=== PATIENT | female | born 1980 | race African-American/Black ===

== ENCOUNTER → 2023-03-28 14:13 | Outpatient (BNVA) | payer OTHER, SELFPAY | PROVIDERS: PCP Internal Medicine; Visit Provider Physician Assistant | DX: Z48.89 Encounter for other specified surgical aftercare (principal); Z98.1 Arthrodesis status | CPT/HCPCS: 99212 ==

== ENCOUNTER 2023-06-27 09:24 | Outpatient (REF) | payer OTHER, SELFPAY | END 2023-06-27 09:25 | disposition home or self-care (01) | LOC: HO.HOSX 09:24 | PROVIDERS: Visit Provider Physician Assistant | DX: Z13.89 Encounter for screening for other disorder (principal) ==

== ENCOUNTER 2023-07-15 14:35 | Outpatient (AMB) | payer OTHER, SELFPAY ==
--- NOTE | 2023-07-15 14:47 | HO.SPINEOV ---
Intake Intake Visit Reasons: 2nd post op Intake Note: Ms. Ruggiero is here today for her 2nd post-op visit. Automation Machine Operator Required: No Assessment & Plan Assessment & Plan (1) Cervical radiculopathy: Code(s): M54.12 - Radiculopathy, cervical region Plan Mrs Ruggiero is now about 4 and half months out from her anterior cervical fusion C5-6. Unfortunately she has not seen a significant relief of the pain going down her right arm into her hand. She is now also starting to get pain going down her left arm. We were concerned about the amount of advanced degeneration we saw at the C3-4 level at the time of her initial office visit but wanted to avoid committing her to a 3 level cervical fusion. Unfortunately due to lack of improvement and persistence of symptoms she is back today to discuss if there any further options. She is still continuing to gets some tingling in her hands as well. She also has neck pain in the posterior interscapular region. Holding her arms overhead is quite difficult as well as a will give her a significant amount of discomfort. Exam is nonfocal. I would like to get a set of x-rays to evaluate the hardware, followed by cervical MRI with and without emily 0 to assess if there is any residual stenosis at C5-6 and whether not we may consider any future surgeries. Total amount of time spent in this visit was 20 minutes in discussion of symptoms, x-ray an MRI ordering and subsequent plan of care Heriberto Og MD,PhD [facility] Orders: Orders MR cervical spine wo/w con Today M54.12 - Radiculopathy, cervical region XR cervical spine 4V Today M54.12 - Radiculopathy, cervical region Coding Level of Care Code Est Pt Level 3 (53217) Diagnoses Cervical radiculopathy M54.12
== END 2023-07-15 15:11 | disposition home or self-care (01) ==
PROVIDERS: PCP Internal Medicine; Visit Provider Physician Assistant
DX: M54.12 Radiculopathy, cervical region (principal)
CPT/HCPCS: 99213

== ENCOUNTER 2023-07-15 14:35 | Outpatient (REF) | payer OTHER, SELFPAY ==
--- NOTE | ~2023-07-15 | XR_ITS ---
EXAMINATION: XR CERVICAL SPINE CLINICAL INFORMATION: Radiculopathy COMPARISON: None available. TECHNIQUE: 4 views of the cervical spine were obtained. FINDINGS: There is evidence of mild anterolisthesis of C2 on C3 with flexion positioning and minimal retrolisthesis of C2 on C3 with extension positioning. Alignment is otherwise unremarkable. Cervical vertebral body heights are maintained. There is anterior fusion hardware at the C5/6 level. Cervical vertebral body heights are maintained. Disc spaces are relatively well-maintained. Osteophytes are noted within the mid and lower cervical spine. There is no prevertebral soft tissue swelling. Visualized lung apices are well aerated. XR/XR cervical spine 4V IMPRESSION: 1. Evidence of mild anterolisthesis of C2 on C3 with flexion positioning and minimal retrolisthesis of C2 on C3 with extension positioning. 2. Postsurgical changes of the cervical spine.
== END 2023-07-15 14:36 | disposition home or self-care (01) ==
LOC: HO.HOSX 14:35
PROVIDERS: PCP Internal Medicine; Visit Provider Physician Assistant
DX: M54.12 Radiculopathy, cervical region (principal)
CPT/HCPCS: 72050; 99212

== ENCOUNTER 2023-08-12 15:54 | Outpatient (REF) | payer OTHER, SELFPAY ==
--- NOTE | ~2023-08-12 | MR_ITS ---
EXAMINATION: MR CERVICAL SPINE WITHOUT AND WITH CONTRAST CLINICAL INFORMATION: 43-year-old with radiculopathy, cervical region. History of previous cervical fusion. COMPARISON: None available. TECHNIQUE: MRI of the cervical spine was obtained using routine sequences with and without contrast. Intravenous contrast: Gadavist 10 mL. TECHNICAL NOTE: Images are degraded by motion artifact and suboptimal signal. FINDINGS: ALIGNMENT: Slight lordotic reversal centered at C3-C4. Otherwise alignment appears anatomic. CRANIOCERVICAL JUNCTION/C1-C2 ARTICULATIONS: Intact and aligned. VISUALIZED INTRACRANIAL STRUCTURES: Grossly unremarkable. VERTEBRAL BODIES: Vertebral body heights are well-maintained. Note that there is ferromagnetic artifact anteriorly at C5-C6 consistent with previous ACDF procedure which partially obscures the vertebral bodies and disc space at this level. DISC SPACES AND ENDPLATES: Postoperative changes at C5-C6 with partial obscuration due to metallic artifact. Moderate disc space height loss at C3-C4 with anterior marginal disc osteophyte complex and disc desiccation. Mild disc space height loss at C4-C5 with disc desiccation and anterior marginal disc osteophyte complex. Mild disc volume loss at C6-C7 with disc desiccation and anterior marginal spondylosis. Disc desiccation at C2-C3. BONE MARROW: Limited assessment due to ferromagnetic artifact at C5-C6. Possible degenerative endplate changes versus postoperative changes along the endplates at C5-C6 versus artifact. Minor type II marrow signal changes along the inferior endplate of C3 and along the inferior endplate of C6. Minimal type I marrow signal changes suspected at C6-C7. C2-C3: Shallow central disc protrusion with mild indentation of the ventral thecal sac without cord impingement. Ligamentum flavum thickening is noted with mild central canal stenosis. No significant DJD or neural foraminal stenosis. C3-C4: Broad-based central to right paramedian/subarticular extruded disc herniation with cephalad and caudal migration associated with endplate spurring, with effacement of the ventral dural sac on the right and moderate right-sided ventral cord compression without cord edema. There is xnxcxvjo-bv-rgtach spinal canal stenosis asymmetric to the right with right lateral recess stenosis. Disc herniation also encroaches on the proximal right neural foramen likely impinging on the right C4 nerve root with zrvmmlbq-nv-uwcswn narrowing of the right neural foramen. There is uncinate process spurring also noted without significant left-sided foraminal narrowing. C4-C5: Central to left paramedian disc herniation noted, with encroachment on the ventral dural sac centrally and slightly asymmetric to the left without kimberly cord compression. There is qwau-sp-cducynms spinal canal stenosis slightly asymmetric to the left. Minor left-sided and moderate right-sided facet arthropathy noted with minor uncinate process spurring without significant neural foraminal stenosis. C5-C6: Status post ACDF at this level, with posterior osteophytic ridging asymmetric to the right with flattening of the ventral dural sac, right more than left and moderate ventral cord deformity asymmetric to the right associated with moderate spinal canal stenosis asymmetric to the right. Bony productive change noted laterally with mild foraminal narrowing. C6-C7: Central to left paramedian disc herniation noted, with flattening of the ventral dural sac asymmetric to the left with mild left-sided ventral cord deformity/impingement and yhlc-cy-hsscoljl spinal canal stenosis. There is mild facet arthropathy on the left with uncinate process spurring without significant neural foraminal stenosis. C7-T1: Small central disc protrusion with slight indentation of the ventral thecal sac without cord impingement or canal stenosis. Mild facet arthrosis on the left with minor left-sided foraminal narrowing. SPINAL CORD: The cervical and visualized upper thoracic spinal cord demonstrates normal signal intensity throughout within the limitations of the study, without focal lesion, edema, syrinx or abnormal enhancement. There is no definite abnormal leptomeningeal enhancement within the limitations of the exam. EXTRACRANIAL SOFT TISSUES: Note is made of a mildly enlarged left-sided level III-B lymph node. No other enlarged lymph nodes are seen. This is a nonspecific finding. There is suboptimal evaluation of vascular signal voids on this exam. Within these limitations, signal voids are noted in the major arterial structures. MR/MR cervical spine wo/w con IMPRESSION: 1. Status post ACDF procedure at the C5-C6 level, with osteophytic ridging asymmetric to the right and moderate spinal canal stenosis with ventral cord deformity asymmetric to the right and mild foraminal narrowing. 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 2. Multilevel discogenic degenerative changes between C3-C4 and C6-C7 inclusive, with multilevel disc herniations, most apparent on the right at C3-C4 with moderate right-sided ventral cord compression and kmdnoyex-mz-qcxiuf spinal canal stenosis at this level with oygcxsag-lj-xmpxar right-sided foraminal narrowing, with right C4 nerve root impingement. 3. Tujw-su-zxxtycjf spinal canal stenosis at C4-C5 and qqpw-uw-antqmkyf spinal canal stenosis at C6-C7 with mild left-sided ventral cord impingement/deformity at C4-C5 and C6-C7. 4. Small central disc protrusion at C2-C3 and small central disc protrusion at C7-T1. 5. Nonspecific mildly enlarged left level III-B lymph node. Followup as per clinical indications.
[2023-08-12] MEDS: gadobutroL 10 ML VIAL IVPUSH (16:44)
== END 2023-08-12 15:55 | disposition home or self-care (01) ==
LOC: HO.MRI 15:54
PROVIDERS: PCP Family Medicine; Visit Provider Physician Assistant
DX: M54.12 Radiculopathy, cervical region (principal)
CPT/HCPCS: 72156; A9585

== ENCOUNTER 2023-09-17 14:26 | Outpatient (AMB) | payer OTHER, SELFPAY ==
--- NOTE | 2023-09-17 14:30 | A.SPINEOV_ITS ---
Intake Intake Visit Reasons: Developing skin condition Intake Note: Ms. Ruggiero is here today (same day visit) to check a developing skin condition. Senior Hardware Engineer Required: No Allergies ibuprofen Allergy (Severe, Verified 09/17/23 12:45) Rash Penicillins Allergy (Severe, Verified 09/17/23 12:45) Hives, vomiting strawberry Allergy (Severe, Verified 09/17/23 12:45) Hives, vomiting topiramate [From Topamax] Allergy (Severe, Verified 09/17/23 12:45) facial heat and swelling orange Allergy (Mild, Verified 09/17/23 12:45) Vomiting Assessment & Plan Assessment & Plan (1) Preoperative evaluation to rule out surgical contraindication: Code(s): Z01.818 - Encounter for other preprocedural examination Plan Nasreen came in for an impromptu appointment today after the Anesthesiology nurse called our office concerned about a reportedly diffuse skin rash that she had. There was some concern/discussion that this may prevent her from being a surgical candidate for her surgery that is scheduled next week. To recap she is scheduled for a C3-4, C4-5 ACDF on 09/25/23. We discussed her skin rash at length and she reports that it first began prior to the onset of summer. She went and saw her primary care physician who tried several prescription medications to treat her rash without avail. She have tried triamcinolone, permethrin, and hydrocortisone, alongside a plethora of other OTC remedies. She states that none of these have been helpful for her, aside from modestly reducing the amount of lesions which are present. She states that her primary care is aware of this and continues to follow her outpatient. On exam the patient is well-appearing in no acute distress. After removing her sweat sure there is no obvious signs of skin rash or lesion. She states the majority of her lesions lie underneath the bra line and near her axilla. There are no concerns from a surgical standpoint for the surgical field having rash or lesion impeding her ability to perform her C3-4, C4-5 ACDF. Her anterior / lateral/ posterior neck were all completely clear of lesions, and her anterior chest wall above the nipple line was also completely clear of lesions. Nasreen will remain our surgical schedule for 09/25/2023. She reportedly has a Dermatology referral in to further resolve this chronic issue. Again it should not be concerning from a surgical standpoint based on where the surgical field will need to be for an ACDF. This was discussed with Dr. Og who is in agreement. Total amount of time spent in this visit was 25 minutes in discussion of symptoms, physical examination, referral review, medication review, surgical scheduling, and subsequent plan of care. Kenji Og MD,PhD [facility] Coding Level of Care Code Est Pt Level 3 (56605) Diagnoses Preoperative evaluation to rule out surgical contraindication Z01.818
== END 2023-09-17 14:50 | disposition home or self-care (01) ==
PROVIDERS: PCP Family Medicine; Visit Provider Physician Assistant
DX: Z01.818 Encounter for other preprocedural examination (principal)
CPT/HCPCS: 99213

== ENCOUNTER → 2023-09-17 14:26 | Outpatient (BNVA) | payer OTHER, SELFPAY | PROVIDERS: PCP Family Medicine; Visit Provider Physician Assistant | DX: Z01.818 Encounter for other preprocedural examination (principal) | CPT/HCPCS: 99212 ==

== ENCOUNTER 2023-09-25 09:44 | Day surgery (SDC) | payer OTHER, SELFPAY ==
--- NOTE | 2023-09-17 | ECG_ITS ---
Test Reason : preop Blood Pressure : / mmHG Vent. Rate : 060 BPM Atrial Rate : 060 BPM P-R Int : 148 ms QRS Dur : 082 ms QT Int : 414 ms P-R-T Axes : 047 055 035 degrees QTc Int : 414 ms Normal sinus rhythm Normal ECG No previous ECGs available Referred By: Fabi Apple Electronically Signed By:MARIAN SHETH MD
[2023-09-17 12:46] VITALS: BP 123/78; PULSE 78; RESP 16; O2SAT 100; BMI 37.9
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
[2023-09-17 14:21] LABS: Hemoglobin 12.1 g/dl (12.0-16.0); Mean Corpuscular HGB Conc 31.8 g/dl (31.0-35.0); Mean Corpuscular Hemoglobin 30.8 pg (27.0-33.0); Mean Corpuscular Volume 96.7 fL (80.0-98.0); Mean Platelet Volume 9.2 fL (9.4-12.3); Platelet Count 292 X10*3/uL (160-400); Red Blood Count 3.93 X10*6/uL (4.20-5.50); Red Cell Distribution Width 14.1 % (11.0-16.0); White Blood Count 8.1 X10*3/uL (4.8-10.8)
[2023-09-17 15:28] LABS: Anion Gap 12 (12-20); Blood Urea Nitrogen 10 mg/dL (9-16); Calcium 9.3 mg/dL (8.4-10.2); Carbon Dioxide 28 mmol/L (22-29); Chloride 108 mmol/L (96-108); Creatinine Clr Calc Pharmacy 109.4; Estimated Glomerular Filt Rate > 60; Glucose Random 90 mg/dL (60-115); Potassium 4.1 mmol/L (3.3-5.1); Sodium 144 mmol/L (135-145)
[2023-09-25] VITALS (13 sets, daily range): BP systolic 125–170; BP diastolic 72–97; PULSE 67–84; RESP 14–28; TEMP 36.8–36.9; O2SAT 99–100; BMI 37.9; BMI 38.0
--- NOTE | ~2023-09-25 | FL_ITS ---
EXAMINATION: XR FLUOROSCOPY WITH IMAGES CLINICAL INFORMATION: C3-C4, C4-C5 anterior cervical discectomy with fusion. COMPARISON: None available. TECHNIQUE: Fluoroscopy Supervised By: Dr. Rufino Og. Fluoroscopy Time: 15.1 seconds. Cumulative Dose: 5.3895 mGy. DAP: 0.8757 Gycm2. Images: 2. FINDINGS: Images demonstrate ACDF hardware at C3-C4 and C4-C5 FL/FL guidance in OR IMPRESSION: Fluoroscopy guidance for C3-C4 and C4-C5 ACDF.
--- NOTE | 2023-09-25 07:02 | P.HPSUR_ITS ---
Pre-Procedural Eval Section A Date of Service: 09/25/23 Section B Chief Complaint: Radiculopathy, cervical region Allergies: Allergies Allergy/AdvReac Type Severity Reaction Status Date / Time ibuprofen Allergy Severe Rash Verified 09/17/23 12:45 Penicillins Allergy Severe Hives, Verified 09/17/23 12:45 vomiting strawberry Allergy Severe Hives, Verified 09/17/23 12:45 vomiting topiramate [From Topamax] Allergy Severe facial Verified 09/17/23 12:45 heat and swelling orange Allergy Mild Vomiting Verified 09/17/23 12:45 Review of Systems Sugical H&P ROS: Negative: Constitution, Cardiovascular, Respiratory, Neurological, Psychiatric, Hem-Onc, Allergic/Immunologic, Gastrointestinal, Genitourinary, Musculoskeletal, Integumentary, Endocrine and E yes/Ears/Nose/Throat Exam Surgical H&P Exam: Not Evaluated: HEENT, Not Evaluated: Heart, Not Evaluated: Lungs, Not Evaluated: Extremities, Not Evaluated: Abdomen, Not Evaluated: Skin and Not Evaluated: Neurological Plan Diagnosis/Plan: Unchanged I have reviewed the history and physical and performed a pertinent physical examination on my patient. No changes have occurred unless specified. plan remains the same, C3-4, C4-5 ACDF Time Spent With Patient Time: Total time managing care of this patient today __10__ minutes.
--- NOTE | 2023-09-25 10:05 | HE.PHANOTE ---
Addendum entered by Tenisha Solorzano [facility] 09/25/23 10:30: Got a call back from [facility] stating the provider was spoken to previously and he did say it was ok for pharmacy to adjust dose based on weight. Changed order to 1500mg Original Note: RE: vanco pre-op Tesfaye called from [facility] to let me know that the provider does not want a weight based dose of vanco for pre-op
[2023-09-25 10:12] LABS: UPreg QC Valid YES; Urine Pregnancy NEGATIVE (NEGATIVE)
[2023-09-25] MEDS: Gabapentin 300 MG CAPSULE PO ×2 (10:24→19:48)
[2023-09-25] MEDS: methocarbamoL 750 MG TABLET PO (10:24)
[2023-09-25] MEDS: Scopolamine 1.5 MG PATCH.TD.3 TRANSDERMA (10:24)
[2023-09-25] MEDS: vancomycin HCL 1,500 MG in 0.9 % Sodium Chloride 500 ML 333.33 MG IV ×2 (10:37→22:25)
[2023-09-25] MEDS: Lactated Ringers 1,000 ML 100 ML IVCONT (10:38)
--- NOTE | 2023-09-25 14:43 | P.OP_ITS ---
Operative Note Operative Note Date of Service: 09/25/23 Narrative: Preoperative Diagnosis: right cervical radiculopathy Procedure: C3-C4, C4-[id number] discectomy, arthrodesis and implantation cage ; C3-C5 anterior instrumentation ; local autograft; microscope Informed Consent was obtained for this operation. I have explained the nature, purpose and benefits of the operation. I have discussed the risks and benefit of the operation including possible complications or adverse events with patient/family. Alternative(s) were discussed with the patient with their relative benefits and risks as well as the consequences of not accepting the operation were included in obtaining consent. Surgeon: BELEN MONGE MD, PHD Procedure Assisted By: Heriberto LESLIE Description of Procedure: this patient previously underwent a C5-C6 anterior diskectomy fusion. She continues to suffer from right cervical radiculopathy. The MRI shows a large osteophyte compressing the right C4 nerve root. She was offered a C3-4 anterior diskectomy fusion and due to the fact that she had a previous C5-6 fusion the C4-5 disc will also be fused. The procedure complications were explained. The patient was consented. The patient was brought to the operating room and endotracheally intubated. The patient was put in supine position with slight extension of the neck. Prep and drape was done followed by timeout. A mid cervical incision was made followed by opening of the platysma. The prevertebral fascia was reached following the natural planes while the physician certified registered dental assistant provided manual retraction. The prevertebral fascia was opened to expose the disc space. The exposure was difficult due to the patient's anatomy and therefore took longer than expected. A spinal needle was placed in the disk space to confirm the correct level with xray. The longus colli muscles were released bilaterally and a self retaining retractor was inserted. Two Sheldon pins were placed in the C3-C4 vertebral bodies and distraction was give over the interspace. The discectomy was completed toward the posterior annulus of the disc. The microscope was brought in. The remainder of the discectomy was completed. The posterior ligament was opened and resected to expose the underlying dura. The large posterior osteophyte was resected on the right side to decompress the C4 nerve. A nerve hook could be easily passed over the nerve root sign of decompression.. The endplates were prepared after which a 6 mm cage filled with autograft was inserted into the disc space. A separate attached plate was locked down with 1 x 14 mm screws as anterior instrumentation. Then attention was turned to the C4-5 level. A thorough diskectomy was done with opening of the posterior longitudinal ligament. Bone fragments were removed from the body of C5 and C4 and saved for autograft. The the endplates were prepare after which a 6 mm cage filled with autograft and allograft was inserted into the disc space. 2 x 14 mm screws were inserted as anterior instrumentation. Final x-rays in AP and lateral projection showed a satisfactory position of the implants. The physician certified registered dental assistant took over. The Sheldon pin was removed. Hemostasis was done. He closed the incision in 2 layers with a 3-0 Vicryl. Steri-Strips used to approximate incision. An OpSite with Tegaderm was used to cover the incision. All sponge and needle counts were correct. Patient was extubated and transported in stable is to recovery room. Anesthesia: General Estimated Blood Loss (ml): 60 mL Duration of Surgery: 2hr 30 minutes Postoperative Plan: admit to inpatientfor observation. Decadron to decrease swelling from traction. Complications: None
[2023-09-25] MEDS: fentaNYL citrate/PF 100 MCG/2 ML VIAL 25 MCG IVPUSH ×4 (15:20→15:35)
[2023-09-25] MEDS: oxyCODONE HCl Immed Release 5 MG TABLET PO (16:23)
[2023-09-25] MEDS: 0.9 % Sodium Chloride 1,000 ML 75 ML IVCONT (17:26)
[2023-09-25] MEDS: Labetalol HCL 200 MG TABLET PO (17:26)
[2023-09-25] MEDS: HYDROmorphone HCl 1 MG/ML SYRINGE IVPUSH (19:44)
[2023-09-25] MEDS: Sertraline HCL 50 MG TABLET PO (19:48)
[2023-09-25] MEDS: Acetaminophen 325 MG TABLET 975 MG PO (19:48)
[2023-09-25] MEDS: Docusate Sodium 100 MG CAPSULE PO (19:48)
[2023-09-25] MEDS: Famotidine 20 MG TABLET PO (19:48)
[2023-09-25] MEDS: Pregabalin 150 MG CAPSULE PO (19:48)
[2023-09-25] MEDS: Baclofen 20 MG TABLET PO (19:54)
--- NOTE | 2023-09-25 20:01 | PHA.MEDREC ---
Pharmacy Consult ? Medication Reconciliation Pharmacy has reviewed the medication reconciliation completed by nursing.
[2023-09-25] MEDS: dexAMETHasone sod phosphate 4 MG/ML VIAL IVPUSH (22:24)
[2023-09-25] MEDS: ondansetron HCL 4 MG/2 ML VIAL IVPUSH (22:32)
[2023-09-25] MEDS: oxyCODONE HCl Immed Release 5 MG TABLET 10 MG PO (22:33)
[2023-09-26] MEDS: HYDROmorphone HCl 1 MG/ML SYRINGE IVPUSH ×2 (00:04→05:30)
[2023-09-26 00:19] VITALS: BP 150/88; PULSE 76; RESP 18; TEMP 36.6; O2SAT 99
[2023-09-26] MEDS: Acetaminophen 325 MG TABLET 975 MG PO ×3 (03:02→14:14)
--- NOTE | 2023-09-26 03:22 | PC.NURSE ---
Pt seen on bed alert and oriented, c/o throat and neck pain , PRN Dilaudid IV given with good effect, pt ate a PBJ after feeling better and complained after of persistent cough , pain intensified and feeling like she can't clear her throat, pt is able to talk clearly and vitals are WNL, pt reassured pt, Dr. Dawkins was updated, PRN Oxycodone tab given, with good effect, pt was able to take naps at intervals.
[2023-09-26 04:00] VITALS: BP 142/85; PULSE 92; RESP 18; TEMP 36.3; O2SAT 98
[2023-09-26] MEDS: 0.9 % Sodium Chloride 1,000 ML 75 ML IVCONT (05:30)
[2023-09-26] MEDS: dexAMETHasone sod phosphate 4 MG/ML VIAL IVPUSH ×2 (05:31→14:20)
[2023-09-26] MEDS: Labetalol HCL 200 MG TABLET PO (05:31)
[2023-09-26 08:00] VITALS: BP 137/84; PULSE 86; RESP 16; TEMP 36; O2SAT 98
[2023-09-26] MEDS: Ascorbic Acid 500 MG TABLET PO (08:54)
[2023-09-26] MEDS: Pregabalin 150 MG CAPSULE PO (08:54)
[2023-09-26] MEDS: Docusate Sodium 100 MG CAPSULE PO (08:54)
[2023-09-26] MEDS: Gabapentin 300 MG CAPSULE PO ×2 (08:54→14:14)
[2023-09-26] MEDS: Famotidine 20 MG TABLET PO (08:55)
[2023-09-26] MEDS: Loratadine 10 MG TABLET PO (08:55)
[2023-09-26] MEDS: Baclofen 20 MG TABLET PO (08:59)
--- NOTE | 2023-09-26 08:59 | P.DS_ITS ---
DS: Providers Provider Date of Service: 09/26/23 Primary care physician: Elvia Coreas MD DS: Summary Time Spent with Patient Time attestation: Total time managing care of this patient today ____ minutes. Discharge coordination time: Less than 30 minutes Quality: Safe Use of Opioids Does Pt have an Active Cancer Diagnosis on the Problem List?: No Quality: Stroke Does the patient have a stroke diagnosis?: No Physical Exam Vital Signs: Vital Signs: Last Vital Signs Temp 96.8 F 09/26/23 08:00 Pulse 86 09/26/23 08:00 Resp 16 09/26/23 08:00 BP 137/84 09/26/23 08:00 Pulse Ox 98 09/26/23 08:00 O2 Del Method Room Air 09/26/23 08:00 O2 Flow Rate 6 09/25/23 16:25 BMI result Body Mass Index 38.0 DS: Data Data Completed and Pending Labs on day of discharge: Laboratory Results - last 24 hr 09/25/23 09/25/23 09:00 10:20 Urine Test NEGATIVE Blood Type O Positive Antibody Screen NEGATIVE Discharge Plan Discharge Patient Disposition: Home, Self-Care Referrals: Elvia Coreas MD [Primary Care Provider] - 1 Week Discharge Medications: New oxycodone 5 mg tablet 5 mg PO Q6H PRN (Reason: severe pain (scale score 7-10)) Qty: 30 0RF Rx Instructions: Partial Fill upon patient request. docusate sodium 100 mg capsule 100 mg PO BID Qty: 10 0RF acetaminophen 500 mg tablet 1,000 mg PO Q6H Qty: 42 1RF Continued labetalol 200 mg tablet 200 mg PO Q12H cetirizine 10 mg tablet 10 mg PO DAILY acetaminophen 500 mg tablet 1,000 mg PO TID PRN (Reason: mild pain) baclofen 10 mg tablet 20 mg PO TID PRN (Reason: muscle spasm) Proctofoam HC 1-1 % foam 1 appl WI QID PRN (Reason: Hemorrhoids) norethindrone (contraceptive) 0.35 mg tablet 0.35 mg PO BEDTIME sertraline 50 mg tablet 50 mg PO BEDTIME pregabalin 150 mg capsule 150 mg PO BID cod liver oil Capsule 1 cap PO DAILY ascorbic acid (vitamin C) [Vitamin C] 500 mg Tablet 500 mg PO DAILY Hair, Skin and Nails (biotin) 10,000 mcg Tablet,Chewable PO permethrin 5 % cream topical triamcinolone acetonide 0.1 % cream topical BID PRN (Reason: itch) Discharge Orders: Discharge Order (Routine); Ordered 09/26/23 Ordered By: Kenji Arthur Diet: Advance to usual diet Activity on Discharge: As tolerated Activity Restrictions/Additional Instructions: After your spinal surgery we ask you to observe the following restr ictions/guidelines: Activity: It is normal to feel some discomfort as you increase your activity, but that will improve with time. We ask you avoid heavy lifting or acitivities that cause pain. As a general rule, 8lbs is a safe limit for lifting right after surgery. Walk as much as you feel comfortable but not to exhaustion. You will feel extra tired the first few days after surgery. Stay well hydrated. It is OK to walk up and down stairs You may return to driving when you are off narcotics (such as vicodin, oxycodone, dilaudid, etc), and you are back to normal functional capacity. If you have any concerns please check with office before driving. Return to work is specific to each patient and each surgery, so please speak with your doctor/PA at first follow up. Please bring paperwork such as FMLA at that time if you need it filled out. Medications: We will give you a short supply of narcotics after surgery (usually one weeks worth). If you need more please call the office but do not use more than prescribed. You will need to give our office 48 hours notice if you need narcotics refilled and we do not fill narcotics on weekends or evenings. If you are on a narcotic, it is a good idea to take a stool softener such as colace or senna to avoid constipation If you take blood thinner such as aspirin, Plavix, Coumadin, Effient, Eliquis etc for conditions such as Afib, DVT, Pulmonary embolus, coronary disease, stents etc please speak with your surgeon about specific details as to when you can resume these medications. You can resume NSAIDs on post op day 1 (eg: Motrin, Naproxen, etc). Follow up: Please call the office, , after surgery to arrange a 3 week follow up for wound check. Wound Care: You may remove your dressing on the first day after surgery. You may leave open to air. Please do not remove the steri strips underneath. they will fall off on their own in one week. IT IS NORMAL FOR THE WOUND TO OOZE OR BE BLOODY FOR A FEW DAYS AFTER SURGERY. IF THIS HAPPENS JUST PLACE NEW DRESSING OVER IT TO AVOID STAINING CLOTHES. You may shower on post op day # 1 We ask that you do not let the water soak the wound. If it does get wet, just towel dry lightly. Please do not scrub your incision or place any type of chemical/ointment on the wound. No tub baths, pools or jacuzzis for one month. If you have any leaking or redness from your wound, or fevers, please call the office.
--- NOTE | 2023-09-26 09:04 | HO.NEURO.PN ---
Neurosurgery Operative Note Date of Service: 09/26/23 Narrative: POD: 1 Procedure: C3-4, C4-5 ACDF Nasreen was seen this morning sitting upright in bed eating breakfast. Patient reports she is up walking around is otherwise doing well. She feels her symptoms are much better than pre-operatively. He still reports mild pain in her neck, with good relief with pain medication. She states that she does not have any radicular symptoms at this time. She is voiding well, tolerating diet. Afebrile, vital signs stable. Strength is full in UE/LE. No neurological deficits. She has no vocal deficit. Neck dressing has some staining without signs of hematoma. No active sanguineous drainage. Area is dry. Plan: Patient meets criteria to be medically discharged home. Dr. Og is aware of plan. Kenji Og MD,PhD [facility]
[2023-09-26] MEDS: oxyCODONE HCl Immed Release 5 MG TABLET 10 MG PO (12:05)
--- NOTE | 2023-09-26 13:56 | HO.POSTANES ---
Post Anesthesia Evaluation Post Anesthesia Evaluation Date of Service: 09/26/23 Vital Signs: Vital Signs Temp Pulse Resp BP Pulse Ox O2 Del Method 09/26/23 08:00 96.8 F 86 16 137/84 98 Room Air 09/26/23 04:00 97.3 F 92 18 142/85 H 98 Room Air Anesthesia: General Endotracheal-GETA Mental Status: Awake Pain Control: Satisfactory Nausea/Vomiting: None Hydration: Adequate Anesthesia-Related Issues: No Anes. Related Issues
== END 2023-09-26 16:46 | disposition home or self-care (01) ==
LOC: HO.SSS 09:45 → HO.S3 15:00
PROVIDERS: Nurse Practitioner; PCP Family Medicine; Visit Provider Neurological Surgery
PROC: (CPT 22551; principal; 2023-09-25 11:00)
DX: M54.12 Radiculopathy, cervical region (principal); M54.2 Cervicalgia; M79.602 Pain in left arm; M79.601 Pain in right arm; R20.2 Paresthesia of skin; Z98.1 Arthrodesis status; M79.7 Fibromyalgia; I10 Essential (primary) hypertension; E78.5 Hyperlipidemia, unspecified; F32.A Depression, unspecified; F43.10 Post-traumatic stress disorder, unspecified; Z79.899 Other long term (current) drug therapy; Z88.8 Allergy status to other drugs, medicaments and biological substances; Z88.0 Allergy status to penicillin; Z98.890 Other specified postprocedural states; Z87.891 Personal history of nicotine dependence
CPT/HCPCS: 22551; 22552; 22853 ×2; 20936; 22845; 36415; 80048; 81025; 85027; 86850; 86900; 86901; 93005; C1713; J0131; J1100; J1170; J2250; J2405; J3010; J3370; J3371; L8699

== ENCOUNTER → 2023-09-25 09:44 | Outpatient (BNV) | payer OTHER, SELFPAY | PROVIDERS: PCP Family Medicine; Visit Provider Neurological Surgery | DX: Z48.89 Encounter for other specified surgical aftercare (principal) | CPT/HCPCS: 20936; 22551; 22552; 22845; 22853; 99024; 99499 ==

== ENCOUNTER 2023-10-21 12:58 | Outpatient (REF) | payer OTHER, SELFPAY | END 2023-10-21 12:59 | disposition home or self-care (01) | LOC: HO.HOSX 12:58 | PROVIDERS: PCP Family Medicine; Visit Provider Physician Assistant | DX: Z13.89 Encounter for screening for other disorder (principal) ==

== ENCOUNTER 2023-10-21 12:58 | Outpatient (AMB) | payer OTHER, SELFPAY ==
--- NOTE | 2023-10-21 13:04 | A.SPINEOV_ITS ---
Intake Intake Visit Reasons: 1st post op Intake Note: Ms. Ruggiero is here today for her 1st post-op visit. Allergies ibuprofen Allergy (Severe, Verified 09/17/23 12:45) Rash Penicillins Allergy (Severe, Verified 09/17/23 12:45) Hives, vomiting strawberry Allergy (Severe, Verified 09/17/23 12:45) Hives, vomiting topiramate [From Topamax] Allergy (Severe, Verified 09/17/23 12:45) facial heat and swelling orange Allergy (Mild, Verified 09/17/23 12:45) Vomiting Assessment & Plan Assessment & Plan (1) S/P spinal surgery: Code(s): Z98.890 - Other specified postprocedural states Plan Procedure: C3-4, C4-5 ACDF Nasreen comes in today for her 1st postoperative visit. She reports she is happy that we were able to perform the surgery especially given the constraints with accessing the surgical site, but does report that she is still in quite a bit of pain. She reports that she has been utilizing ice packs, [id number]-[id number] pain medications, and has been rationing her oxycodone prescription for when she needs it. She states she has been trying to do stretching/general movements of her neck is still hurts to perform lateral rotation and flexion/extension. She requested a final partial refill of her oxycodone as she uses it when she absolutely needs it for breakthrough pain. No neurological deficits. Patient is able to ambulate well, rises from a seated position without difficulty. Incision site is closed, well healing, with no signs of drainage. We will follow-up with the patient in 6 weeks for her 2nd postoperative visit. At that time we will get x-rays to review with the patient. Kenji Og MD,PhD [facility] Orders: Orders XR cervical spine 4V Today Z98.890 - Other specified postprocedural states Medications: Changed From oxycodone Partial Fill upon patient request. 5 mg PO Q8H PRN 20 tabs 0RF severe pain (scale score 7-10) To oxycodone Partial Fill upon patient request. 5 mg PO BID PRN 12 tabs 0RF severe pain (scale score 7-10) Coding Level of Care Code Global (53490) Diagnoses S/P spinal surgery Z98.890
== END 2023-10-21 13:16 | disposition home or self-care (01) ==
PROVIDERS: PCP Family Medicine; Visit Provider Physician Assistant
DX: Z98.890 Other specified postprocedural states (principal)
CPT/HCPCS: 99024

== ENCOUNTER 2023-12-02 13:39 | Outpatient (AMB) | payer OTHER, SELFPAY ==
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
== END 2023-12-02 14:40 | disposition home or self-care (01) ==
PROVIDERS: PCP Family Medicine; Visit Provider Physician Assistant
DX: Z98.890 Other specified postprocedural states (principal)
CPT/HCPCS: 99024

== ENCOUNTER → 2023-12-02 13:39 | Outpatient (BNVA) | payer OTHER, SELFPAY | PROVIDERS: PCP Family Medicine; Visit Provider Physician Assistant ==

== ENCOUNTER 2023-12-02 13:41 | Outpatient (REF) | payer OTHER, SELFPAY | END 2023-12-02 13:42 | disposition home or self-care (01) | LOC: HO.HOSX 13:41 | PROVIDERS: Visit Provider Physician Assistant | DX: Z48.89 Encounter for other specified surgical aftercare (principal) | CPT/HCPCS: 72050; 99212 ==

== ENCOUNTER 2025-04-15 15:02 | Outpatient (AMB) | payer OTHER, SELFPAY ==
--- OUTSIDE RECORDS SUMMARY | 2025-04-15 15:05 | XMS_ITS | Clinical Summary ---
Author Organization [address] [place] [address] Address [address] [place] [address] Phone Care Team Providers Care Nuclear Unit Operator Name Role Phone Ginette Coreas MD Primary Care Provider [phone] Allergies Active Allergy Reactions Criticality Noted Date Comments Ibuprofen 03/04/2025 Penicillins 03/04/2025 Topiramate 03/04/2025 Medications methylPREDNISol one (MEDROL DOSPAK) 4 mg tablet Follow schedule on package instructions 1 each 5 Active Encounters Date Type Department Care Team Description 03/04/2025 1:00 PM EDT Office Visit Orthopedic Surgery [address] [place] [address] Agatha Cobb PA Right arm pain (Primary Dx); Paresthesia of right upper extremity from Last 3 Months Surgical History Surgery Date Site/Laterality Comments TONSILLECTOMY 12/01/1989 PROCEDURE: HISTORICAL TONSILLECTOMY CARPAL TUNNEL RELEASE 12/01/2007 PROCEDURE: HISTORICAL CARPAL TUNNEL REL BREAST LUMPECTOMY 12/01/2007 PROCEDURE: HISTORICAL BREAST LUMPECTOMY OTHER SURGICAL HISTORY 12/01/2004 PROCEDURE: HISTORICAL D&C; COMMENT: [facility] HAND SURGERY 05/14/2021 Left PROCEDURE: HISTORICAL HAND SURGERY; COMMENT: first dorsal compartment release on 05-14-[address] Hermosillo Medical History Medical History Date Comments Hypertension DX:Hypertension High cholesterol DX:High cholest drake Insomnia DX:Insomnia Depression DX:Depression Anxiety DX:Anxiety Glaucoma DX:Glaucoma Anemia DX:Anemia Thyroid disease DX:Thyroid disea se Esophageal reflux DX:Esophageal reflux Family History Medical History Relation Name Comments Diabetes Father Other: Other Father High Blood Pres sure, High Cholesterol, Drug/Alcohol problems Stroke Father Other: Other Mother High Blood Pres surs Other: Other Son Asthma Relation Name Status Comments Father Mother Son Social History Tobacco Use Types Packs/Day Years Used Date Smoking Tobacco: Former Cigarettes Smokeless Tobacco: Never Alcohol Use Standard Drinks/Week Comments Yes 0 (1 standard drink = 0.6 oz pur e alcohol) Comments Unknown Sex and Gender Information Value Date Recorded Sex Assigned at Not on file Legal Sex Female 1:43 AM EST Gender Identity Not on file Sexual Orientation Not on file Obstetrics History Last Filed Vital Signs Vital Sign Reading Time Taken Comments Blood Pressure 123/71 03/31/2023 11:23 AM EDT Pulse 80 03/31/2023 11:23 AM EDT Temperature - - Respiratory Rate - - Oxygen Saturation - - Inhaled Oxygen Concentration - - Weight 90.7 kg (200 lb) 03/04/2025 1:17 PM EDT Height 167.6 cm (5' 5.98 ) 03/04/2025 1:17 PM ED T Body Mass Index 32.3 03/04/2025 1:17 PM EDT Plan of Treatment Upcoming Encounters Date Type Department Care Team (Late st Contact Info) Description 04/19/2025 1:45 PM EDT Office Visit Orthopedic Surgery - [place] [address] [address] Nata Hermosillo MD [address] [phone] 05/16/2025 12:30 PM EDT Appointment [facility] [address] [place] [phone] Health Maintenance Due Date Last Done Comments Breast Cancer Screening 1979 Hepatitis B Vaccines (1 of 3 - 19+ 3-dose series) 1998 Cervical Cancer Screening: P ap Smear 2000 DTaP,Tdap,and Td Vaccines (3 - Td or Tdap) 01/31/2022 02/01/2012, 06/04/2008 Cholesterol Screening (Lipid Panel) 11/09/2022 Colorectal Cancer Screening: Colonoscopy 11/09/2022 Depression Screening 11/09/2022 HIV Screening 11/09/2022 Hepatitis C Screening 11/09/2022 Social Influencers of Health Screening 11/09/2022 Hypertension/CHF/CAD Annual BMP Blood Test 01/02/2024 COVID-19 Vaccine (2023-2 5 season) 2024 10/17/2022, 01/11/2022, 10/24/2021 Influenza Vaccine (Season Ended) 2025 HIB Vaccines Aged Out No longer eligi ble based on patient's age to complete this topic HPV Vaccines Aged Out No longer eligi ble based on patient's age to complete this topic Hepatitis A Vaccines Aged Out No long er eligible based on patient's age to complete this topic IPV Vaccines Aged Out No longer eligi ble based on patient's age to complete this topic MMR Vaccines Aged Out No longer eligi ble based on patient's age to complete this topic Meningococcal ACWY Vaccine Aged Out N o longer eligible based on patient's age to complete this topic Meningococcal B Vaccine Aged Out No l onger eligible based on patient's age to complete this topic Pneumococcal Vaccine: Pediatrics (0 to 5 Years) and At-Risk Patients (6 to 64 Years) Aged Out No longer eligible b ased on patient's age to complete this topic RSV Immunization Patients Under 20 months Aged Out No longer eligible b ased on patient's age to complete this topic Varicella Vaccines Aged Out No longer eligible based on patient's age to complete this topic Procedures Procedure Name Priority Date/Time Associated Diagnosis Comments XR ELBOW 3+ VIEWS RIGHT Routine 03/04/2025 1:36 PM EDT Pain from Last 3 Months Results * XR Elbow 3+ Views Right (03/04/2025 1:36 PM EDT) Anatomical Region Laterality Modality Upper Extremities, Elbow Right Compute d Radiography Narrative 03/04/2025 2:13 PM EDT Date of Visit: 03/04/2025 Reason for visit: Right elbow pain Views: AP, lateral, oblique right elbow Comparison: 2022 Findings: Bone spur off the lateral epicondyle mild arthritic changes at ulnohumeral joint. ??No fracture dislocation or lytic lesions Impression: Mild osteoarthritis of the right elbow and bone spur at lateral epicondyles. us Agatha LESLIE IMG XR PROCEDURES Final Resul t from Last 3 Months Insurance [employer] [address] [place] [address] Care Teams Nuclear Unit Operator Relationship Specialty Start Date End Date Ginette Coreas MD [address] [place] [phone] PCP - General 01/12/20
--- NOTE | 2025-04-15 15:10 | A.SPINEOV_ITS ---
Intake Visit Reasons: neck pain Intake Note: Ms. Ruggiero is here today c/o neck pain. 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 Required: No Allergies ibuprofen Allergy (Severe, Verified 04/15/25 15:26) Rash Penicillins Allergy (Severe, Verified 04/15/25 15:26) Hives, vomiting strawberry Allergy (Severe, Verified 04/15/25 15:26) Hives, vomiting topiramate [From Topamax] Allergy (Severe, Verified 04/15/25 15:26) facial heat and swelling orange Allergy (Mild, Verified 04/15/25 15:26) Vomiting Assessment & Plan Assessment & Plan (1) Cervical radiculopathy: Code(s): M54.12 - Radiculopathy, cervical region Category: Medical Plan Mrs Brennan is a patient known to us from C3-6 anterior cervical diskectomy and fusion, the last procedure in 2022, presents for evaluation of new symptoms that started in October of this year. She awoke feeling like she strained her neck or maybe slept wrong and ultimately this symptom transitioned into a pain radiating down her arm into her whole hand. At 1st she thought it was lateral epicondylitis because she had had some issues with that the previous year, but the pain intensified significantly more than what it was, so she tried a few conservative measures like icing her elbow and was put in a brace. That did not seem to help it. Once she started to get numbness of the whole hand and arm, she was referred back to us for an evaluation. She has an upcoming EMG pending. She takes muscle relaxers, oxycodone and Lyrica to help with the pain. On exam she is very uncomfortable, she does have tenderness over the elbow but there is difficulty with any manipulation of the arm it gives her intense pain shooting down her right arm. Therefore could not do thorough motor testing. Even testing her canvas baster jumpbasting strength would give her pain. Reflexes are diminished at the biceps and triceps. No Mixon's sign. Gait is normal. She believes she may have got an MRI already, so I told her to check into that and we would be happy to review it for her. If it has not been done, I think it is reasonable we start with a cervical MRI to see if she has adjacent segment disease. Total amount of time spent in this visit was 20 minutes in discussion of symptoms, ordering imaging and subsequent plan of care Heriberto Og MD,PhD [facility] Coding Level of Care Code Est Pt Level 3 (54229) Diagnoses Cervical radiculopathy M54.12
== END 2025-04-15 15:38 | disposition home or self-care (01) ==
LOC: HO.HNS 15:03
PROVIDERS: PCP Family Medicine; Visit Provider Physician Assistant
DX: M54.12 Radiculopathy, cervical region (principal)
CPT/HCPCS: 99213

== ENCOUNTER → 2025-04-15 15:02 | Outpatient (BNVA) | payer OTHER, SELFPAY | PROVIDERS: PCP Family Medicine; Visit Provider Physician Assistant | DX: M54.12 Radiculopathy, cervical region (principal) | CPT/HCPCS: 99212 ==

== ENCOUNTER → 2025-05-26 18:00 | Outpatient (BNV) | payer OTHER, SELFPAY | PROVIDERS: PCP Family Medicine; Visit Provider Radiology Diagnostic Radiology | DX: M47.12 Other spondylosis with myelopathy, cervical region (principal) | CPT/HCPCS: 72141 ==

== ENCOUNTER 2025-05-26 18:01 | Outpatient (REF) | payer OTHER, SELFPAY ==
--- NOTE | ~2025-05-26 | MR_ITS ---
EXAMINATION: MR CERVICAL SPINE WITHOUT CONTRAST CLINICAL INFORMATION: Radiculopathy, cervical spine. COMPARISON: August 12, 2023. Correlated to x-ray dated December 2023.. TECHNIQUE: MRI of the cervical spine was obtained using routine sequences without contrast. FINDINGS: Limited by patient's motion artifact. Craniocervical junction is intact. Paramagnetic field distortion secondary to metallic hardware C3 C6. No bone marrow STIR signal abnormality. Bilateral hemicord hyperintense T2 STIR cord signal at C5-6. C2-3: Broad-based disc osteophyte complex formation resulting in ventral deformity of the spinal cord. No neuroforamina stenosis. Left-sided facet joint hypertrophy. C3-4: Postsurgical changes central spinal canal stenosis with CSF effacement of the thecal sac and cord deformity. Bilateral neuroforamina stenosis on a degenerative basis. C4-5: Postsurgical changes. CSF effacement of the thecal sac. Cord compression. Right neuroforamina and narrowing on a degenerative basis. C5-6: Postsurgical changes with a right midline and foraminal osteophyte formation resulting in central spinal canal stenosis series effacement of the thecal sac and cord deformity. Bilateral neuroforamina narrowing on a degenerative basis. C6-7: Disc osteophyte compresses formation resulting in ventral deformity of the spinal cord and CSF effacement of thecal sac. No neuroforamina narrowing. C7-T1: Left-sided disc osteophyte complex formation resulting in CSF effacement of thecal sac and cord deformity. No gross cord signal abnormality. Bilateral neuroforamina narrowing on a degenerative basis. Flow-void signal within the main vessels is normal. Right vertebral artery is slightly dominant. 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 Electronically signed by: Brent Beavers MD 05/27/2025 07:27 AM EDT
--- OUTSIDE RECORDS SUMMARY | 2025-05-26 19:57 | XMS_ITS | Clinical Summary ---
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[employer] Name Role Phone Ginette Coreas MD Primary Care Provider [phone] Allergies Active Allergy Reactions Criticality Noted Date Comments Ibuprofen 03/04/2025 Penicillins 03/04/2025 Topiramate 03/04/2025 Medications methylPREDNISol one (MEDROL DOSPAK) 4 mg tablet Follow schedule on package instructions 1 each 5 Active Encounters Date Type Department Care Team Description 03/04/2025 1:00 PM EDT Office Visit Orthopedic Surgery [address] [place] [address] Agatha Cobb PA Right arm [...] Care Team (Late st Contact Info) Description 07/19/2025 4:00 PM EDT Office Visit Orthopedic Surgery - [place] [address] [phone] Nata Hermosillo MD [address] [phone] 07/25/2025 1:30 PM EDT Appointment [facility]diagn[facility] [address] [place] [phone] Health Maintenance Due Date Last Done Comments [...] epicondyle mild arthritic changes at ulnohumeral joint. No fracture dislocation or lytic lesions Impression: Mild osteoarthritis of the right elbow and bone spur at lateral epicondyles. us Agatha LESLIE IMG XR PROCEDURES Final Resul t from Last 3 Months Insurance [employer] [address] [place] [address] Care Teams Salvage [employer] Relationship Specialty Start Date End Date Ginette Coreas MD [address] [place] [phone] PCP - General 01/12/20
== END 2025-05-26 18:02 | disposition home or self-care (01) ==
LOC: HO.MRI 18:01
PROVIDERS: PCP Family Medicine; Visit Provider Physician Assistant
DX: M54.12 Radiculopathy, cervical region (principal)
CPT/HCPCS: 72141